=== PATIENT | male | born 1950 | race Caucasian/White ===

== ENCOUNTER → 2016-09-02 | Day surgery (SDC) | payer MEDICARE, OTHER ==
[~2016-09-02] VITALS: Ht 180.3 cm; Wt 96.8 kg
[~2016-09-02] MED LIST: ACETAMINOPHEN/HYDROcodone 325 MG/7.5 MG TAB PO PRN; CALC0.25 PO; CALC750C21 CHEW; CHLORHEXIDINE GLUCONATE 2 % 1 PACK (2 CLOTHS) TOPICAL PRN; DO NOT ADM ANY ANTICOAGULANT DRUGS PRN; INSULIN HUMAN REGULAR 1,000 UNITS/10 ML VIAL SQ PRN; LACTATED RINGER'S 1000 ML IV PRN; LEVO137T2 PO; METOPROLOL TARTRATE 25 MG TAB PO PRN; MORPHINE SULFATE 4 MG/ML INJ IV PRN; OFLOXACIN 0.3% OPTH SOLN 5 ML BTL ONE; OMEP20TA PO; ONDANSETRON HCL 4 MG/2 ML VIAL IV PUSH PRN; POVIDONE IODINE 5% (ANTISEPSIS KIT) 4 APPLICATIONS EACH NARE PRN; PROPOFOL 200 MG/20 ML AMP IV ONE; SODIUM CHLORID 0.9% 500 ML IV PRN; TUMS750C OR
[2016-09-02 06:33] VITALS: BP 128/84; PULSE 80; RESP 20; TEMP 98.6; O2SAT 97
--- NOTE | 2016-09-02 08:42 | MH ---
cc: MARANDA BARILLAS M.D. DATE OF ADMISSION 09/02/2016 HISTORY OF PRESENT ILLNESS He is a 55-year-old gentleman with chronic otitis for bilateral myringotomy tube placement. PAST MEDICAL HISTORY Unremarkable. PAST SURGICAL HISTORY Unremarkable. REVIEW OF SYSTEMS/FAMILY HISTORY AND SOCIAL HISTORY Unremarkable. PHYSICAL EXAMINATION GENERAL: Well-appearing patient in no acute distress noted. HEENT: Exam reveals significant fluid behind each eardrum with severe retraction. LUNGS: Clear. HEART: Regular rate and rhythm. ABDOMEN: Soft and nontender. EXTREMITIES: Without cyanosis, clubbing or edema. NEUROLOGICALLY: Alert, oriented, nonfocal neurologic exam. IMPRESSION The patient with chronic otitis media for tubes. Instructed as to the method of surgery and possible complication to include anesthetic complications, cardiac difficulty, pulmonary difficulty, stroke, or even . Surgical complications bleeding, infection, risk of early or late extrusion of tubes, tympanic membrane perforation, conductive or sensorineural hearing loss. The patient appeared to agree, accept and understand the above-mentioned risks and benefits. No guarantees or warranties regarding outcome were given. We will therefore proceed with surgery. MD JOCELYNN Díaz/EO /3:31 PM /8:33 AM
[2016-09-02 10:05] VITALS: BP 138/82; PULSE 75; RESP 18; TEMP 97.7; O2SAT 97
--- NOTE | 2016-09-02 11:34 | MP ---
cc: MARANDA BARILLAS DATE OF SURGERY 09/02/2016 PREOPERATIVE DIAGNOSIS Chronic otitis media POSTOPERATIVE DIAGNOSIS Chronic otitis media PROCEDURE Bilateral myringotomy and tube placement with T-tubes ANESTHESIA General anesthesia ESTIMATED BLOOD LOSS Minimal COMPLICATIONS No complications. OPERATIVE SURGEON Dr. Barillas OPERATION FOLLOWS Prepped and draped in the usual fashion. Anterior-inferior radial myringotomy incision made right side. Complete myringostapediopexy was noted on the right side and it was very difficult to get a tube inserted anteriorly at the level of the eustachian to anterior inferior quadrant as the drum and the underlying bone were essentially scarred together. There was no true middle ear space. Despite this, at least one leg of the T-tube was inserted underneath the drum and Ofloxin drops were instilled all under microscopic visualization. On the opposite side, there was some middle ear space in the posterior inferior quadrant. A radial myringotomy incision was made. Fluid was suctioned from the middle ear cavity and tympanostomy T-tube placed in good position along with Ofloxin. The patient tolerated procedure well. MD JOCELYNN Díaz/SKY /8:45 AM /11:17 AM
--- NOTE | 2016-09-02 13:37 | EKG ---
Date Performed: 09/02/2016 Time Performed: 06:52:55 PTAGE: 65 years EKG: Sinus rhythm NORMAL ECG Compared to prior tracing no significant change PREVIOUS TRACING : 02/15/2013 11.20 DOCTOR: Rajinder Torrez Interpretating Date/Time 09/02/2016 13:36:42
== END | disposition home or self-care (01) ==
LOC: HSDC 05:54
PROVIDERS: ATTEND Specialist
DX: H66.93 Otitis media, unspecified, bilateral (principal); Z01.810 Encounter for preprocedural cardiovascular examination
CPT/HCPCS: 00126; 69436; 93005; J7120